=== PATIENT | female | born 2005 | race Caucasian/White ===

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

== ENCOUNTER 2024-03-09 09:26 | Emergency (ER) | payer OTHER, SELFPAY ==
[2024-03-09 09:31] VITALS: BP 139/95; PULSE 68; RESP 18; O2SAT 99
[2024-03-09] MEDS: Acetaminophen 500 MG TAB 1000 MG PO (09:39)
[2024-03-09] MEDS: Ibuprofen 600 MG TAB PO (09:39)
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
[2024-03-09] MEDS: Tetanus & Diphtheria Tox,ADULT 0.5 ML VIAL IM (10:30)
[2024-03-09] MEDS: Bacitracin 30 GM TUBE TP (10:31)
== END 2024-03-09 10:40 | disposition home or self-care (01) ==
LOC: ER 10:44
PROVIDERS: Emergency Provider Emergency Medicine; PCP Nurse Practitioner Pediatrics
DX: T20.10XA Burn of first degree of head, face, and neck, unspecified site, initial encounter (principal); T31.0 Burns involving less than 10% of body surface; Z23 Encounter for immunization; X19.XXXA Contact with other heat and hot substances, initial encounter; Y99.0 Civilian activity done for income or pay
CPT/HCPCS: 90471; 90714; 99284; 99283

== ENCOUNTER 2024-03-13 18:52 | Outpatient (REF) | payer OTHER, SELFPAY ==
[2024-03-13 19:28] LABS: Abs Immature Grans 0.01 10^3/uL (0.0-0.06); Absolute Basophil Count 0.07 10^3/uL (0.0-0.2); Absolute Eosinophil Count 0.11 10^3/uL (0.0-0.7); Absolute Lymphocyte Count 1.94 10^3/uL (1.2-3.4); Absolute Monocyte Count 0.62 10^3/uL (0.1-0.8); Absolute Neutrophil Count 2.85 10^3/uL (1.2-6.7); Basophils % 1.3 %; HCT 45.9 % (36.0-46.0); HGB 15.1 g/dL (11.2-15.7); Immature Grans % 0.2 %; Lymphocytes % 34.6 %; MCH 31.1 pg (27.0-33.0); MCHC 32.9 % (32.0-36.0); MCV 95 fL (80-95); MPV 9.5 fL (8.0-11.0); Monocytes % 11.1 %; Neutrophils % 50.8 %; Platelet Count 304 10^3/uL (130-400); RBC 4.85 10^6/uL (3.93-5.22); RDW 11.9 % (11.7-14.6); RDW-SD 41.3 fL
[2024-03-13 19:51] LABS: ALT 21 U/L (14-59); AST 18 U/L (15-37); Albumin 4.2 g/dL (3.4-5.0); Alkaline Phosphatase 128 U/L (46-116); Anion Gap 6.1 mmol/L (3-11); BUN 14 mg/dL (7-18); Bilirubin, Total 0.34 mg/dL (0.2-1.0); CO2 28.9 mmol/L (21.0-32.0); CREATININE 0.8 mg/dL (0.55-1.02); Calcium 9.3 mg/dL (8.5-10.1); Calculated LDL 78 mg/dL (<100); Chloride 104 mmol/L (98-107); Cholesterol 154 mg/dL (<200); Estimated GFR 108.78 (mL/min/1.73m2); FREE T4 0.86 ng/dL (0.78-1.34); Glucose 91 mg/dL (74-106); HDL Cholesterol 54 mg/dL (40-60); Potassium 4.2 mmol/L (3.5-5.1); Sodium 139 mmol/L (136-145); TSH 0.71 uIU/mL (0.52-4.13); Total Protein 7.1 g/dL (6.4-8.2); Triglyceride 112 mg/dL (<150)
[2024-03-29 15:09] LABS: Testosterone, Free 16.4 ng/dL (<0.13-1.08); Testosterone, Total 514 ng/dL (8-60)
== END 2024-03-13 18:53 | disposition home or self-care (01) ==
LOC: NCHCN 18:52
PROVIDERS: PCP Nurse Practitioner Pediatrics; Visit Provider Family Medicine
DX: Z00.00 Encounter for general adult medical examination without abnormal findings (principal)
CPT/HCPCS: 80053; 80061; 84402; 84403; 84439; 84443; 85025